=== PATIENT | male | born 1965 | race Hispanic/Latino ===

== ENCOUNTER 2023-11-02 19:57 | Emergency (ER) | payer OTHER ==
[~2023-11-02] VITALS: Ht 149.9 cm; Wt 59.9 kg
[2023-11-02] MEDS: KETOROLAC 60 MG VIAL (30MG/ML) IM ONE (20:57)
[2023-11-02] MEDS ORDERED: IBUP-2077 PO (21:25)
[2023-11-02 21:43] VITALS: BP 158/91; PULSE 80; RESP 18; O2SAT 97
== END 2023-11-02 21:44 | disposition home or self-care (01) ==
LOC: EDH 19:57
DX: S20.212A Contusion of left front wall of thorax, initial encounter (principal); W18.39XA Other fall on same level, initial encounter; Y93.89 Activity, other specified; Y92.89 Other specified places as the place of occurrence of the external cause; Y99.8 Other external cause status
CPT/HCPCS: 99283; 71101; 96372; J1885